=== PATIENT | female | born 1950 | race Caucasian/White ===

== ENCOUNTER 2017-08-23 08:47 | Day surgery (SDC) | payer MEDICARE, OTHER ==
[~2017-08-23] VITALS: Ht 167.6 cm; Wt 129.5 kg
[2017-08-23] MEDS ORDERED: REQUIP2 MG PO ×2 (09:26→09:27)
[2017-08-23] MEDS ORDERED: HCTZ12.5TAB PO (09:28)
[2017-08-23] MEDS ORDERED: PRIL40 PO (09:28)
[2017-08-23] MEDS ORDERED: ATHLETE'S FOOT1% TP (09:29)
[2017-08-23] MEDS ORDERED: TYLENOL 500MG500 MG PO (09:30)
[2017-08-23] MEDS ORDERED: IRON TABLETS325 MG PO (09:31)
[2017-08-23] MEDS ORDERED: FOLIC ACID0.4 MG PO (09:32)
[2017-08-23] MEDS ORDERED: VITAMINC500CH PO (09:33)
[2017-08-23 09:42] LABS: PROTHROMBIN TIME 12.1 SECONDS (9.7-12.8)
[2017-08-23 10:08] VITALS: BP 130/57; PULSE 54; TEMP 97.8
[2017-08-23 11:10] VITALS: BP 124/66; PULSE 79
[2017-08-23 16:23] VITALS: BP 97/32; PULSE 79; TEMP 98.2
[2017-08-23 16:26] VITALS: BP 97/32; PULSE 79; TEMP 98.2
[2017-08-23 19:41] VITALS: BP 118/46; PULSE 76; TEMP 97.9
[2017-08-24 00:54] VITALS: BP 133/63; PULSE 73; TEMP 97.8
[2017-08-24 05:40] VITALS: BP 114/49; PULSE 65; TEMP 97.4
[2017-08-24 07:53] VITALS: BP 101/49; PULSE 56; TEMP 97.6
[2017-08-24] MEDS ORDERED: CEPHALEXIN500 M1 PO (11:16)
== END 2017-08-24 12:17 | disposition home or self-care (01) ==
LOC: COL.CAR 08:47 → MEDICAL 13:23 → COL.CAR 08-24 12:17
PROVIDERS: Internal Medicine Cardiovascular Disease
DX: I44.1 Atrioventricular block, second degree (principal); I49.5 Sick sinus syndrome; I44.7 Left bundle-branch block, unspecified; K21.9 Gastro-esophageal reflux disease without esophagitis; E66.9 Obesity, unspecified
CPT/HCPCS: OP; C1785; C1894; C1898; J2250; J3010; J3370; J7030; J7050; Q9967

== ENCOUNTER 2022-09-11 10:30 | Outpatient (RCR) | payer MEDICARE, OTHER ==
[~2022-09-11 10:30] MED LIST: ATHLETE'S FOOT1% TP; CEPHALEXIN500 M1 PO; FLEXERIL 1010 MG/TAB PO; FOLIC ACID0.4 MG PO; HCTZ12.5TAB PO; IRON TABLETS325 MG PO; PRIL40 PO; REQUIP2 MG PO; TIAZAC120 MG PO; TYLENOL 500MG500 MG PO; VITAMINC500CH PO; ZIAC 5/6.25MG T1 TAB PO
== END 2022-09-12 | disposition home or self-care (01) ==
LOC: MKS.ESL.PT
DX: I89.0 Lymphedema, not elsewhere classified (principal)

== ENCOUNTER → 2022-11-10 | Outpatient (RCR) | payer MEDICARE, OTHER | END | disposition home or self-care (01) | LOC: MKS.ESL.PT | DX: Z51.81 Encounter for therapeutic drug level monitoring (principal) ==